=== PATIENT | female | born 1945 | race Caucasian/White ===

== ENCOUNTER → 2016-07-05 | Outpatient (CLI) | payer OTHER, BC ==
[~2016-07-05] MED LIST: CALCTAB13 PO; CHOL100027 PO; FISHOIL PO; LEVO75TA36 PO; MULTTAB58 PO; PRLSR20 PO
[2016-07-05 12:22] LABS: BASO % 0.8 %; BASO ABS # 0.04 K/uL (0-0.2); COMPLETE YES; EOS % 6.2 %; HEMATOCRIT 40.3 % (37-47); IG% 0.2 %; LYMPH ABS # 1.55 K/uL (1.2-3.4); MEAN CELL VOLUME 85.9 fL (80-100); MEAN CORPUSCULAR HEMOGLOBIN 30.3 pg (25-34); MEAN CORPUSCULAR HGB CONC 35.2 g/dl (32-36); MEAN PLATELET VOLUME 8.9 fL (7.4-10.4); MONO % 6.4 %; NEUT % 56.4 %; PLATELET COUNT 257 K/uL (130-400); RED BLOOD COUNT 4.69 M/uL (4.2-5.4); WHITE BLOOD COUNT 5.16 K/uL (4.8-10.8)
[2016-07-05 12:37] LABS: ALT/SGPT 25 U/L (12-78); BLOOD UREA NITROGEN 10 mg/dl (7-18); BUN/CREATININE RATIO 13.4 (10-20); CARBON DIOXIDE 26 mmol/L (21-32); CHLORIDE 108 mmol/L (98-107); CHOLESTEROL 231 mg/dl (0-200); CREATININE 0.76 mg/dl (0.60-1.20); GLUCOSE 83 mg/dl (70-99); POTASSIUM 3.8 mmol/L (3.5-5.1); SODIUM 142 mmol/L (136-145); TRIGLYCERIDES 144 mg/dl (0-150); VERY LOW DENSITY LIPOPROT CALC 29 mg/dl
[2016-07-05 12:48] LABS: ALKALINE PHOSPHATASE 88 U/L (45-117); AST/SGOT 21 U/L (15-37); CHOLESTEROL/HDL RATIO 3.3; HDL CHOLESTEROL 70 mg/dl; LDL CHOLESTEROL CALCULATED 132 mg/dl
[2016-07-05 13:18] LABS: CALCIUM 9.3 mg/dl (8.5-10.1)
== END | disposition home or self-care (01) ==
LOC: C.LABBFT 09:07
PROVIDERS: ATTEND Internal Medicine
DX: K20.0 Eosinophilic esophagitis (principal); E78.5 Hyperlipidemia, unspecified

== ENCOUNTER → 2016-12-30 | Outpatient (CLI) | payer OTHER, BC ==
[2016-12-30 12:46] LABS: ESTIMATED AVERAGE GLUCOSE 117 mg/dl; HA1C FLAG Normal (Normal)
[2016-12-30 13:11] LABS: BLOOD UREA NITROGEN 18 mg/dl (7-18); BUN/CREATININE RATIO 27.8 (10-20); CARBON DIOXIDE 27 mmol/L (21-32); CHLORIDE 107 mmol/L (98-107); CHOLESTEROL 232 mg/dl (0-200); CREATININE 0.63 mg/dl (0.60-1.20); GLUCOSE 84 mg/dl (70-99); POTASSIUM 4.2 mmol/L (3.5-5.1); SODIUM 139 mmol/L (136-145); TRIGLYCERIDES 102 mg/dl (0-150); VERY LOW DENSITY LIPOPROT CALC 20 mg/dl
[2016-12-30 13:12] LABS: BASO % 0.9 %; BASO ABS # 0.04 K/uL (0-0.2); COMPLETE YES; EOS % 6.5 %; HEMATOCRIT 38.2 % (37-47); IG% 0.2 %; LYMPH % 42.7 %; LYMPH ABS # 1.89 K/uL (1.2-3.4); MEAN CELL VOLUME 87.4 fL (80-100); MEAN CORPUSCULAR HEMOGLOBIN 29.7 pg (25-34); MEAN PLATELET VOLUME 8.6 fL (7.4-10.4); MONO % 6.5 %; NEUT % 43.2 %; PLATELET COUNT 289 K/uL (130-400); RED BLOOD COUNT 4.37 M/uL (4.2-5.4); WHITE BLOOD COUNT 4.43 K/uL (4.8-10.8)
[2016-12-30 13:21] LABS: CHOLESTEROL/HDL RATIO 3.4; HDL CHOLESTEROL 69 mg/dl; LDL CHOLESTEROL CALCULATED 143 mg/dl; THYROID STIMULATING HORMONE 0.815 uIu/ml (0.300-4.500)
== END | disposition home or self-care (01) ==
LOC: C.LABBFT 08:35
PROVIDERS: ATTEND Internal Medicine
DX: K20.0 Eosinophilic esophagitis (principal); E03.9 Hypothyroidism, unspecified; E55.9 Vitamin D deficiency, unspecified; E78.5 Hyperlipidemia, unspecified; E88.9 Metabolic disorder, unspecified

== ENCOUNTER 2017-03-08 08:00 | Emergency (ER) | payer OTHER, BC ==
[~2017-03-08] VITALS: Ht 157.5 cm; Wt 70.1 kg
[2017-03-08 08:03] VITALS: Ht 157.5 cm; Wt 70.1 kg
[2017-03-08] MEDS ORDERED: ALBUT/IPRATROP 3MG/0.5MG NEB 3 ML VIAL INH STA (08:25)
[2017-03-08] MEDS ORDERED: LEVO75TA5 PO (08:39)
[2017-03-08] MEDS ORDERED: CHOL2000 PO (08:39)
--- NOTE | 2017-03-08 08:50 | EMERGENCY ROOM VISIT NOTE ---
ED Visit Note First contact with patient: 08:12 I have personally evaluated this patient examined her and reviewed the pertinent labs and data. I have discussed the case with Kellie Donnelly, the physician cement tester assistant and agree with the plan. Please refer to the PA note This patient comes in with a cough and URI type symptoms as been sick family members. On exam, she appears in no distress. She's been coughing and has occasional scattered wheeze she was given albuterol Atrovent neb and a chest x- ray was obtained.. Her x-ray shows possible pneumonia in the base. We'll start him on antibiotics and steroids of steroids have helped in the past. She will follow-up with her doctor on Friday and return to ER over the weekend if symptoms worsen
--- NOTE | 2017-03-08 09:15 | DIAGNOSTIC IMAGING REPORT ---
CHEST 2 VIEWS ROUTINE HISTORY: Cough. COMPARISON: Chest 03/19/2016. FINDINGS: Mild emphysema. The right lung is clear. The heart is normal in size. There is a left lower lobe basilar airspace opacity. This is new from the prior study. No pneumothorax. No pleural effusions. IMPRESSION: A new left lower lobe basilar airspace opacity. This is consistent with a pneumonia. Recommend one to 2 month chest x-ray follow-up to ensure resolution. Electronically signed by: Travis Narvaez M.D. 03/08/2017 9:14 AM Dictated Date/Time: 03/08/2017 9:12 AM
[2017-03-08] MEDS ORDERED: PRED50TA PO (09:26)
[2017-03-08] MEDS ORDERED: AZIT-60 PO (09:26)
[2017-03-08] MEDS ORDERED: HYDR5SYP11 PO (09:28)
--- NOTE | 2017-03-08 09:29 | EMERGENCY ROOM VISIT NOTE ---
ED Visit Note First contact with patient: 08:12 CHIEF COMPLAINT: Cough 1 month HISTORY OF PRESENT ILLNESS: Patient is a generally healthy 71-year-old white female who presents emergency department Company by her for evaluation of a cough 1 month. She states her symptoms started about a month ago with a typical cold. She noted sinus and nasal congestion, sore throat and a dry, nonproductive cough. All of these symptoms have resolved except for the cough, which she states is at times very forceful. She feels some rattling in her chest, but denies any sputum production. She states that she cannot bring it up. She denies feeling short of breath. She notes some minor low back discomfort with coughing, but denies any chest or rib pain. She's not had a fever. 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 She only notes of a positive strep exposure. She did not receive a flu shot this season. She does report that she had a similar illness in the end of November , and was treated with prednisone which did help relieve her symptoms. REVIEW OF SYSTEMS: Review of systems as per HPI. All other systems reviewed were negative. 10 systems reviewed. PMH: Electronic medical records are reviewed and summarized as above/below. See Problem List. SOCIAL HISTORY: Patient lives at home with her spouse. Nonsmoker. PHYSICAL EXAM: Vital Signs: Reviewed Nurse's notes. MENTAL STATUS: Patient is a well-appearing 71-year-old white female who is awake and alert and in no acute distress. She has an intermittent, dry cough noted. She is able to speak in full sentences. HEAD: Atraumatic, without temporal or scalp tenderness. EYES: PERRL, EOMI, no discharge or injection. EARS: Tympanic membranes intact, not inflamed, have normal contour. External canals clear. NOSE: Nares patent, turbinates moist without rhinorrhea. MOUTH: Mucous membranes moist, no lesions, tongue and gums appear normal. THROAT: No pharyngeal injection, exudates, or tonsillar hypertrophy. Airway is patent. NECK: No carotid bruits noted. Supple, nontender, no lymphadenopathy. HEART: Regular rate and rhythm without murmurs, ectopy, gallops, or rubs. LUNGS: Breath sounds are equal bilaterally, with few inspiratory and expiratory wheezes noted, left greater than right. No accessory muscle use or retractions. SKIN: Normal. NEUROLOGICAL: Sensory and motor functions grossly intact. Normal gait. EMERGENCY DEPARTMENT COURSE: The patient was seen and evaluated as above. Her old records were reviewed. Chest x-ray was obtained. She was given a DuoNeb treatment. X-ray findings are consistent with a left lower lobe basilar airspace opacity consistent with pneumonia. Patient history and presentation were reviewed with attending physician who also independently evaluated her. She was given azithromycin 500 mg orally and an albuterol inhaler with a spacer and instructed on appropriate use. Continued conservative care measures were discussed. She will also be placed on a short course of oral prednisone, and was given Hycodan that she can use for nighttime cough. She was advised to follow-up with her primary care provider next week for recheck. Differential diagnoses entertained included bronchitis, pneumonia, viral illness including influenza, sinusitis, CHF, among others. Medication reconciliation: I attest that I have personally reviewed the patient' s current medication list. Blood pressure screening: Patient was found to have a slightly elevated blood pressure due to circumstances. I do not believe that the patient requires hypertension monitoring. CHEST 2 VIEWS ROUTINE HISTORY: Cough. COMPARISON: Chest 03/19/2016. FINDINGS: Mild emphysema. The right lung is clear. The heart is normal in size. There is a left lower lobe basilar airspace opacity. This is new from the prior study. No pneumothorax. No pleural effusions. IMPRESSION: A new left lower lobe basilar airspace opacity. This is consistent with a pneumonia. Recommend one to 2 month chest x-ray follow-up to ensure resolution. Problem List Medical Problems: (1) Esophageal Reflux Status: Chronic (2) Hypothyroidism, Unspecified Status: Chronic Current/Historical Medications Scheduled Azithromycin (Zithromax), 250 MG PO DAILY Cholecalciferol (Vitamin D3), 4 CAP PO DAILY Levothyroxine Sodium (Levothyroxine Sodium), 1 TAB PO DAILY Multiple Vitamin (Multivitamin), 1 TAB PO QAM Prednisone (Prednisone), 50 MG PO DAILY Scheduled PRN Hydrocodone W/ Homatropine (Hycodan 5/1.5MG 5 Ml), 10 ML PO Q4H PRN for Cough Allergies Coded Allergies: Amoxicillin (Verified Allergy, Unknown, RASH, 02/02/16) Sulfamethoxazole w/Trimethoprim (Verified Allergy, Unknown, ?RASH, ) Minocycline (Verified Adverse Reaction, Unknown, NAUSEA, 01/30/16) Vital Signs Date Time Temp Pulse Resp B/P (MAP) Pulse Ox O2 Delivery O2 Flow Rate FiO2 03/08/17 09:41 36.8 87 18 137/72 97 03/08/17 09:36 87 18 137/72 97 Room Air 03/08/17 08:07 96 Room Air 03/08/17 08:03 36.8 86 16 149/95 96 Room Air Medications Administered Medications (Trade) Dose Ordered Sig/Akin Route Start Time Stop Time Status Last Admin Dose Admin Albuterol/ Ipratropium (Duoneb) 3 ml NOW STAT INH 03/08/17 08:25 03/08/17 08:27 DC 03/08/17 08:25 3 ML Azithromycin (Zithromax Tab) 500 mg NOW ONCE PO 03/08/17 09:30 03/08/17 09:31 DC 03/08/17 09:31 500 MG Albuterol (Ventolin Hfa Inhaler) 2 puffs NOW ONCE INH 03/08/17 09:30 03/08/17 09:31 DC 03/08/17 09:31 2 PUFFS Prednisone (PredniSONE TAB) 60 mg NOW STAT PO 03/08/17 09:23 03/08/17 09:25 DC 03/08/17 09:30 60 MG Departure Information Impression Primary Impression: Pneumonia Prescriptions Hydrocodone W/ Homatropine (HYCODAN 5/1.5MG 5 ML) 1 Syp Syp 10 ML PO Q4H Y for Cough, #150 ML For Initial Treatment Prov: Barbara Donnelly PA 03/08/17 Prednisone (Prednisone) 50 Mg Tab 50 MG PO DAILY for 5 Days, #5 TAB Prov: Barbara Donnelly PA 03/08/17 Azithromycin (ZITHROMAX) 250 Mg Tab 250 MG PO DAILY, #4 TAB Prov: Barbara Donnelly PA 03/08/17 Referrals Pro,Steven Cartwright M.D. (PCP) Patient Instructions [facility] Additional Instructions Azithromycin(Zithromax) 250mg: Take one a day for 4 additional days. All antibiotics can cause diarrhea. If this occurs and you feel worse or it does not resolve in 1- 2 days follow up with your doctor or return to the Emergency Department as this could be signs of serious underlying problems. Any medication can cause an allergic reaction, stop the pills immediately and return to the ER for rash, hives, breathing difficulties, or swelling. Prednisone 50mg: Once daily until the prescription is finished. It is best to take this earlier in the day as some patients note occasional difficulty falling asleep when taken in the late evening. Albuterol Inhaler: Take 2 puffs every 4 hours (while awake) for 5-7 days, then as needed. Ibuprofen(Motrin, Advil) may be used for fever or pain. Use 600mg every six hours as needed. Take with food. Avoid using more than 2400mg in a 24 hour period. Do not use 2400mg per day for more than three consecutive days without physician direction. Prolonged inappropriate use can lead to stomach upset or ulcers. This is available over the counter and typically comes in 200mg tablets. (AND/OR) Acetaminophen(Tylenol) may be used for fever or pain. Use 1000mg every eight hours as needed. Avoid using more than 3000mg in a 24 hour period. This is available over the counter. Hycodan cough syrup: use 5-10 mL every six hours only as needed for severe cough. It is best for use at night since it will cause sedation. This is a narcotic medication. Avoid alcohol, operating machinery or dangerous equipment, working on ladders or roofs, DRIVING, important decision making, or situations where being under the influence may be dangerous. It is recommended to use an [id number] stool softener such as Colace, 100mg twice daily while taking this medication to avoid constipation. Read all the package inserts or medication information paperwork provided. If you have any questions or concerns call your primary provider, pharmacist or the ER for assistance. Controlling your fever with Tylenol and Ibuprofen as above will make you feel better. Rest and drink plenty of fluids. Avoid strenuous activity until your symptoms resolve and your breathing returns to normal. Continue current medications. Return to the ER for chest pain, difficulty breathing, persistent fevers, vomiting, worsening of your condition, or as needed Follow up with your primary care physician next week for recheck. Problem Qualifiers Primary Impression: Pneumonia Pneumonia type: due to unspecified organism Laterality: left Lung location : lower lobe of lung Qualified Codes: J18.1 - Lobar pneumonia, unspecified organism
[2017-03-08] MEDS ORDERED: ALBUTEROL HFA 8 GM INHALER INH ONE (09:30)
[2017-03-08] MEDS ORDERED: AZITHROMYCIN 250 MG TAB PO ONE (09:30)
[2017-03-08 09:41] VITALS: BP 137/72; PULSE 87; TEMP 36.8; O2SAT 97
== END 2017-03-08 09:43 | disposition home or self-care (01) ==
LOC: C.EDB 08:00
DX: J18.1 Lobar pneumonia, unspecified organism (principal); E03.9 Hypothyroidism, unspecified; Z79.899 Other long term (current) drug therapy

== ENCOUNTER 2017-03-15 12:20 | Emergency (ER) | payer OTHER, BC ==
[~2017-03-15] VITALS: Ht 157.5 cm; Wt 70.2 kg
[~2017-03-15 12:20] MED LIST changes: +AZIT-60 PO; -CALCTAB13 PO; -CHOL100027 PO; +CHOL2000 PO; -FISHOIL PO; +HYDR5SYP11 PO; -LEVO75TA36 PO; +LEVO75TA5 PO; -PRLSR20 PO
[2017-03-15 12:28] VITALS: TEMP 36.4; Ht 157.5 cm; Wt 70.2 kg
--- NOTE | 2017-03-15 13:00 | EMERGENCY ROOM VISIT NOTE ---
History Report prepared by Micky: Radha Huerta Under the Supervision of: Dr. Anjelica Guillory D.O. First contact with patient: 12:32 Chief Complaint: CONGESTION Stated Complaint: CONGESTION, PNEUMONIA Nursing Triage Summary: pt reports she was here last friday dx with pneumonia then sx have been getting worse. ears feel plugged feels dizzy unable to hear. History of Present Illness The patient is a 71 year old female who presents to the Emergency Room with complaints of worsening congestion for the past 1 week. She reports she was seen here last week for similar symptoms and was diagnosed with pneumonia. She states since then, she feels like she has been getting worse. She finished a 5 day course of both Azithromycin and steroids. She has used an inhaler and cough syrup as needed but has still been intermittently coughing, but feels it is better. 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 Pt now feels nasal congestion and sinus pressure. She also complains of hearing difficulty and states both of her ears "feel plugged". Her notes she's been more hard of hearing than normal. The patient denies any fever, chest pain, shortness of breath, nausea, vomiting, diarrhea, urinary symptoms or pain or swelling in her legs. Source of History: patient Onset: 1 week MOUNTAIN GUIDE Position: other (global) Timing: worsening Associated Symptoms: + cough, No fevers, No chest pain, No SOB, No nausea, No vomiting, No diarrhea, No urinary symptoms Review of Systems See HPI for pertinent positives & negatives. A total of 10 systems reviewed and were otherwise negative. Past Medical & Surgical Medical Problems: (1) Esophageal Reflux (2) Hypothyroidism, Unspecified Social History Smoking Status: Never Smoker Alcohol Use: none Drug Use: none Marital Status: Housing Status: lives with family Occupation Status: employed Current/Historical Medications Scheduled Cholecalciferol (Vitamin D3), 4 CAP PO DAILY Levofloxacin (Levaquin), 750 MG PO DAILY Levothyroxine Sodium (Levothyroxine Sodium), 1 TAB PO DAILY Multiple Vitamin (Multivitamin), 1 TAB PO QAM Scheduled PRN Hydrocodone W/ Homatropine (Hycodan 5/1.5MG 5 Ml), 10 ML PO Q4H PRN for Cough Allergies Coded Allergies: Amoxicillin (Verified Allergy, Unknown, RASH, 03/15/17) Sulfamethoxazole w/Trimethoprim (Verified Allergy, Unknown, ?RASH, ) Minocycline (Verified Adverse Reaction, Unknown, NAUSEA, 03/15/17) Physical Exam Vital Signs Date Time Temp Pulse Resp B/P (MAP) Pulse Ox O2 Delivery O2 Flow Rate FiO2 03/15/17 15:07 65 16 132/72 96 Room Air 03/15/17 13:44 73 03/15/17 13:44 70 16 137/75 96 Room Air 03/15/17 12:28 36.4 85 18 125/76 96 Room Air Physical Exam GENERAL: alert, well appearing, well nourished, no distress, non-toxic EYE EXAM: normal conjunctiva, PERRL and EOM's grossly intact EARS: Erythema along canals bilaterally. TM's with mild partial erythema and mild effusions. No bulging, not dull. OROPHARYNX: no exudate, no erythema, lips, buccal mucosa, and tongue normal and mucous membranes are moist NECK: supple, no nuchal rigidity, no adenopathy, non-tender LUNGS: Clear to auscultation. Normal chest wall mechanics, no w/r/r HEART: no murmurs, S1 normal and S2 normal ABDOMEN: abdomen soft, non-tender, normo-active bowel sounds, no masses, no rebound or guarding. BACK: Back is symmetrical on inspection and there is no deformity, no midline tenderness, no CVA tenderness. SKIN: no rashes and no bruising UPPER EXTREMITIES: upper extremities are grossly normal. FROM, nml pulses. LOWER EXTREMITIES: No pitting edema. FROM, nml pulses. NEURO EXAM: Normal sensorium, cranial nerves II-XII grossly intact, normal speech, no gross weakness of arms, no gross weakness of legs. Medical Decision & Procedures ER Provider Diagnostic Interpretation: Radiology results have been interpreted by the radiologist and reviewed by me. CHEST 2 VIEWS ROUTINE HISTORY: cough, recent pneumonia, feels worse COMPARISON: Chest 03/08/2017. FINDINGS: The heart is normal in size. The left lung is clear. No pleural effusions. No pneumothorax. Small focal airspace opacity within the periphery the right midlung zone. This is new from the prior study. IMPRESSION: 1. The left lower lobe airspace opacity has resolved in the interval. 2. However, there is a new small focal airspace opacity within the periphery of the right midlung zone consistent with a developing pneumonia. One month chest x-ray follow-up is recommended to ensure resolution. Electronically signed by: Travis Narvaez M.D. 03/15/2017 1:58 PM Laboratory Results 03/15/17 12:46 Red Blood Count 5.04, Mean Corpuscular Volume 85.5, Mean Corpuscular Hemoglobin 30.4, Mean Corpuscular Hemoglobin Concent 35.5, Mean Platelet Volume 8.1, Neutrophils (%) (Auto) 66.9, Lymphocytes (%) (Auto) 22.7, Monocytes (%) (Auto) 6.9, Eosinophils (%) (Auto) 2.7, Basophils (%) (Auto) 0.3, Neutrophils # (Auto) 7.61, Lymphocytes # (Auto) 2.58, Monocytes # (Auto) 0.78, Eosinophils # (Auto) 0.31, Basophils # (Auto) 0.03 03/15/17 12:46 Test 03/15/17 12:46 03/15/17 13:02 03/15/17 13:27 White Blood Count 11.37 K/uL (4.8-10.8) Red Blood Count 5.04 M/uL (4.2-5.4) Hemoglobin 15.3 g/dL (12.0-16.0) Hematocrit 43.1 % (37-47) Mean Corpuscular Volume 85.5 fL (80-100) Mean Corpuscular Hemoglobin 30.4 pg (25-34) Mean Corpuscular Hemoglobin Concent 35.5 g/dl (32-36) Platelet Count 425 K/uL (130-400) Mean Platelet Volume 8.1 fL (7.4-10.4) Neutrophils (%) (Auto) 66.9 % Lymphocytes (%) (Auto) 22.7 % Monocytes (%) (Auto) 6.9 % Eosinophils (%) (Auto) 2.7 % Basophils (%) (Auto) 0.3 % Neutrophils # (Auto) 7.61 K/uL (1.4-6.5) Lymphocytes # (Auto) 2.58 K/uL (1.2-3.4) Monocytes # (Auto) 0.78 K/uL (0.11-0.59) Eosinophils # (Auto) 0.31 K/uL (0-0.5) Basophils # (Auto) 0.03 K/uL (0-0.2) RDW Standard Deviation 44.4 fL (36.4-46.3) RDW Coefficient of Variation 14.3 % (11.5-14.5) Immature Granulocyte % (Auto) 0.5 % Immature Granulocyte # (Auto) 0.06 K/uL (0.00-0.02) Anion Gap 6.0 mmol/L (3-11) Est Creatinine Clear Calc Drug Dose 60.7 ml/min Estimated GFR () 88.6 Estimated GFR (Non- 76.5 BUN/Creatinine Ratio 10.9 (10-20) Calcium Level 9.2 mg/dl (8.5-10.1) Total Bilirubin 0.9 mg/dl (0.2-1) Aspartate Amino Transf (AST/SGOT) 12 U/L (15-37) Alanine Aminotransferase (ALT/SGPT) 23 U/L (12-78) Alkaline Phosphatase 97 U/L (45-117) Troponin I < 0.015 ng/ml (0-0.045) Pro-B-Type Natriuretic Peptide 117 pg/ml (0-900) Total Protein 8.0 gm/dl (6.4-8.2) Albumin 3.7 gm/dl (3.4-5.0) Globulin 4.3 gm/dl (2.5-4.0) Albumin/Globulin Ratio 0.9 (0.9-2) Thyroid Stimulating Hormone (TSH) 1.150 uIu/ml (0.300-4.500) Bedside Lactic Acid Venous 1.09 mmol/L (0.90-1.70) Influenza Type A Antigen Neg for Influ A (NEG) Influenza Type B Antigen Neg for Influ B (NEG) Urine Color YELLOW Urine Appearance CLEAR (CLEAR) Urine pH 7.5 (4.5-7.5) Urine Specific [place] 1.009 (1.000-1.030) Urine Protein NEG (NEG) Urine Glucose (UA) NEG (NEG) Urine Ketones NEG (NEG) Urine Occult Blood NEG (NEG) Urine Nitrite POS (NEG) Urine Bilirubin NEG (NEG) Urine Urobilinogen NEG (NEG) Urine Leukocyte Esterase LARGE (NEG) Urine WBC (Auto) >30 /hpf (0-5) Urine RBC (Auto) 0-4 /hpf (0-4) Urine Hyaline Casts (Auto) 10-30 /lpf (0-5) Urine Epithelial Cells (Auto) 10-20 /lpf (0-5) Urine Bacteria (Auto) 4+ (NEG) Date/Time Source Procedure Growth Status 03/15/17 13:27 Urine , Clean Catch Urine Culture - Final Escherichia Coli Klebsiella Pneumoniae Complete Laboratory results per my review. Medications Administered Medications (Trade) Dose Ordered Sig/Akin Route Start Time Stop Time Status Last Admin Dose Admin Ceftriaxone Sodium (Rocephin Inj) 1 gm NOW STAT IV 03/15/17 14:02 03/15/17 14:03 DC 03/15/17 14:09 1 GM ECG Indication: weakness Rate (beats per minute): 72 Rhythm: normal sinus Findings: T-wave inversion (in lead 3), no ectopy, other (No other ischemic changes) ED Course 1250: The patient was evaluated in room B10. A complete history and physical exam was performed. 1402: Rocephin 1 gm IV. 1436: I updated the patient on her test results so far. 1515: I reevaluated the patient. She is resting comfortably. I discussed her discharge instructions and she verbalized complete understanding and agreement. Medical Decision Differential Diagnosis includes but is not limited to dehydration, stroke, anemia, hypoglycemia, hyponatremia, hypernatremia, urinary tract infection, pneumonia, bronchitis, sepsis, gastroenteritis, additional abdominal pathology, metabolic abnormalities and infections. Pt well appearing here despite complaints. Prior pneumonia resolved, however questionable new infiltrate, however pt's prior sx of pneumonia improved and now complaining of nasal congestion, sinus pressure, ear pressure. Ears not classic for AOM, no sx/exam findings to suggest acute sinusitis/mastoiditis/ deep space infection. No w/r/r, afebrile and no significant leukocytosis. Pt also with UTI. 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 Possible viral URI and sinusitis, levaquin chosen to cover UTI and possible residual pneumonia. No evidence of bacteremia/sepsis. Pt well appearing here. Pt not immunocompromised. Discussed f/u with PCP, sx to watch/return for, she verbalized understanding and was agreeable with the plan. Medication Reconcilliation Current Medication List: was personally reviewed by me Blood Pressure Screening Patient's blood pressure: Normal blood pressure Blood pressure disposition: Did not require urgent referral Impression Primary Impression: UTI (urinary tract infection) Additional Impressions: Pneumonia Upper respiratory infection Scribe Attestation The scribe's documentation has been prepared under my direction and personally reviewed by me in its entirety. I confirm that the note above accurately reflects all work, treatment, procedures, and medical decision making performed by me. Departure Information Dispostion Home / Self-Care Prescriptions Levofloxacin (Levaquin) 500 Mg Tab 750 MG PO DAILY for 5 Days, #8 TAB Prov: Anjelica Guillory, DO 03/15/17 Referrals Steven Rasmussen M.D. (PCP) Patient Instructions [facility] Additional Instructions Please rest and drink plenty of fluids. Please take the antibiotics as prescribed and consider using a probiotic while you're taking them. Please follow up with your family doctor as a precaution to assure your symptoms are improving. You will need a follow-up outpatient chest xray to assure any residual infection has cleared. You may eat normally. If you have any worsening symptoms or new concerns, please return the emergency room. Problem Qualifiers Primary Impression: UTI (urinary tract infection) Urinary tract infection type: acute cystitis Hematuria presence: without hematuria Qualified Codes: N30.00 - Acute cystitis without hematuria Additional Impressions: Pneumonia Pneumonia type: due to unspecified organism Laterality: right Lung location : middle lobe of lung Qualified Codes: J18.1 - Lobar pneumonia, unspecified organism Upper respiratory infection URI type: unspecified URI Qualified Codes: J06.9 - Acute upper respiratory infection, unspecified
[2017-03-15 13:08] LABS: BASO % 0.3 %; BASO ABS # 0.03 K/uL (0-0.2); COMPLETE YES; EOS % 2.7 %; HEMATOCRIT 43.1 % (37-47); IG% 0.5 %; LYMPH % 22.7 %; LYMPH ABS # 2.58 K/uL (1.2-3.4); MEAN CELL VOLUME 85.5 fL (80-100); MEAN CORPUSCULAR HEMOGLOBIN 30.4 pg (25-34); MEAN CORPUSCULAR HGB CONC 35.5 g/dl (32-36); MEAN PLATELET VOLUME 8.1 fL (7.4-10.4); MONO % 6.9 %; NEUT % 66.9 %; PLATELET COUNT 425 K/uL (130-400); RED BLOOD COUNT 5.04 M/uL (4.2-5.4); WHITE BLOOD COUNT 11.37 K/uL (4.8-10.8)
[2017-03-15 13:16] LABS: ALT/SGPT 23 U/L (12-78); BLOOD UREA NITROGEN 9 mg/dl (7-18); BUN/CREATININE RATIO 10.9 (10-20); CALCIUM 9.2 mg/dl (8.5-10.1); CARBON DIOXIDE 32 mmol/L (21-32); CHLORIDE 99 mmol/L (98-107); CREATININE 0.78 mg/dl (0.60-1.20); GLUCOSE 100 mg/dl (70-99); POTASSIUM 3.4 mmol/L (3.5-5.1); SODIUM 137 mmol/L (136-145)
[2017-03-15 13:27] LABS: ALB/GLOB RATIO 0.9 (0.9-2); ALKALINE PHOSPHATASE 97 U/L (45-117); AST/SGOT 12 U/L (15-37)
[2017-03-15 13:50] LABS: MANUAL MICROSCOPIC REQUIRED? NO; REVIEW REQ? NO; URINE APPEARANCE CLEAR (CLEAR); URINE BILIRUBIN NEG (NEG); URINE COLOR YELLOW; URINE NITRITE POS (NEG); URINE PH 7.5 (4.5-7.5); URINE SPECIFIC GRAVITY 1.009 (1.000-1.030); UROBILINOGEN NEG (NEG); ZZUR CULT IF INDIC CLEAN CATCH YES
--- NOTE | 2017-03-15 13:59 | DIAGNOSTIC IMAGING REPORT ---
CHEST 2 VIEWS ROUTINE HISTORY: cough, recent pneumonia, feels worse COMPARISON: Chest 03/08/2017. FINDINGS: The heart is normal in size. The left lung is clear. No pleural effusions. No pneumothorax. Small focal airspace opacity within the periphery the right midlung zone. This is new from the prior study. IMPRESSION: 1. The left lower lobe airspace opacity has resolved in the interval. 2. However, there is a new small focal airspace opacity within the periphery of the right midlung zone consistent with a developing pneumonia. One month chest x-ray follow-up is recommended to ensure resolution. Electronically signed by: Travis Narvaez M.D. 03/15/2017 1:58 PM Dictated Date/Time: 03/15/2017 1:56 PM
[2017-03-15] MEDS ORDERED: CEFTRIAXONE SOD INJ 1 GM ADDVIAL IV STA (14:02)
[2017-03-15 15:07] VITALS: BP 132/72; PULSE 65; O2SAT 96
[2017-03-15] MEDS ORDERED: LEVO-366 PO (15:12)
== END 2017-03-15 15:30 | disposition home or self-care (01) ==
LOC: C.EDB 12:21
DX: N39.0 Urinary tract infection, site not specified (principal); J18.9 Pneumonia, unspecified organism; J06.9 Acute upper respiratory infection, unspecified; E03.9 Hypothyroidism, unspecified

== ENCOUNTER → 2017-10-24 | Outpatient (CLI) | payer OTHER, BC ==
[~2017-10-24] MED LIST changes: -AZIT-60 PO; -HYDR5SYP11 PO
[2017-10-24 12:44] LABS: BASO % 1.3 %; BASO ABS # 0.06 K/uL (0-0.2); EOS % 11.6 %; EOS ABS # 0.55 K/uL (0-0.5); HEMATOCRIT 40.9 % (37-47); HEMOGLOBIN 14.5 g/dL (12.0-16.0); LYMPH % 36.6 %; LYMPH ABS # 1.73 K/uL (1.2-3.4); MEAN CELL VOLUME 86.1 fL (80-100); MEAN CORPUSCULAR HEMOGLOBIN 30.5 pg (25-34); MEAN CORPUSCULAR HGB CONC 35.5 g/dl (32-36); MEAN PLATELET VOLUME 8.8 fL (7.4-10.4); MONO % 6.3 %; NEUT % 44.2 %; NEUT ABS # 2.09 K/uL (1.4-6.5); PLATELET COUNT 250 K/uL (130-400); RED CELL DISTRIBUTION WIDTH CV 14.3 % (11.5-14.5); RED CELL DISTRIBUTION WIDTH SD 45.6 fL (36.4-46.3); WHITE BLOOD COUNT 4.73 K/uL (4.8-10.8)
[2017-10-24 13:23] LABS: ALT/SGPT 29 U/L (12-78); AST/SGOT 18 U/L (15-37); BLOOD UREA NITROGEN 15 mg/dl (7-18); CALCIUM 8.4 mg/dl (8.5-10.1); CARBON DIOXIDE 26 mmol/L (21-32); CHOLESTEROL 235 mg/dl (0-200); CREATININE 0.75 mg/dl (0.60-1.20); GLUCOSE 89 mg/dl (70-99); LDL CHOLESTEROL CALCULATED 135 mg/dl; POTASSIUM 4.5 mmol/L (3.5-5.1); SODIUM 138 mmol/L (136-145)
== END | disposition home or self-care (01) ==
LOC: C.LABBFT 09:36
PROVIDERS: ATTEND Internal Medicine
DX: K20.0 Eosinophilic esophagitis (principal); E03.9 Hypothyroidism, unspecified; E78.5 Hyperlipidemia, unspecified